=== PATIENT | male | born 1975 | race Caucasian/White ===

== ENCOUNTER 2023-07-23 14:58 | Inpatient (IN) | payer BC ==
[2023-07-23 15:53] VITALS: BMI 25.2
[2023-07-23] MEDS ORDERED: chlordiazePOXIDE HCL 25 MG CAPSULE PO PRN (17:55)
[2023-07-23] MEDS ORDERED: chlordiazePOXIDE HCL 25 MG CAPSULE PO ONE (17:55)
[2023-07-23] MEDS ORDERED: POLYETHYLENE GLYCOL (HEALTHYLAX) 3350 17 GM PACKET PO PRN (17:57)
[2023-07-23] MEDS ORDERED: MAGNESIUM HYDROX 2400MG/30ML ORAL SUSPENSION 30 ML CUP PO PRN (17:57)
[2023-07-23] MEDS ORDERED: IBUPROFEN 400 MG TABLET (FP) PO PRN (17:57)
[2023-07-23] MEDS ORDERED: BENZOCAINE/MENTHOL (CHLORASEPTIC ) LOZENGE MM PRN (17:57)
[2023-07-23] MEDS ORDERED: guaiFENesin 600 MG TABLET.ER (FP) PO PRN (17:57)
[2023-07-23] MEDS ORDERED: BISMUTH SUBSALICYLATE 524 MG/30 ML PO PRN (17:57)
[2023-07-23] MEDS ORDERED: MAG HYDROX/AL HYDROX/SIMETH 30 ML UNIT-DOSE CUP PO PRN (17:57)
[2023-07-23] MEDS ORDERED: BENZONATATE 200 MG CAPSULE PO PRN (17:57)
[2023-07-23] MEDS ORDERED: P-EPHED 60MG/TRIPROLIDI 2.5MG TABLET PO PRN (17:57)
[2023-07-23] MEDS ORDERED: ONDANSETRON *ODT* 4 MG TABLET SL PRN (17:57)
[2023-07-23] MEDS ORDERED: LOPERAMIDE HCL 2 MG CAPSULE PO PRN (17:57)
[2023-07-23] MEDS ORDERED: DICYCLOMINE HCL 10 MG CAPSULE PO PRN (17:57)
[2023-07-23] MEDS ORDERED: chlordiazePOXIDE HCL 25 MG CAPSULE ONE (18:38)
[2023-07-23] MEDS: IBUPROFEN 600 MG TABLET (FP) PO PRN (19:01)
[2023-07-23] MEDS: MELATONIN 5 MG TABLETS PO SCH (22:23)
[2023-07-23] MEDS: THIAMINE HCL 100 MG TABLET (FP) PO SCH (22:23)
[2023-07-23] MEDS: ACETAMINOPHEN 325 MG TABLET (FP) PO PRN (22:24)
[2023-07-23] MEDS: chlordiazePOXIDE HCL 25 MG CAPSULE PO SCH (22:25)
[2023-07-24] MEDS: chlordiazePOXIDE HCL 25 MG CAPSULE PO SCH ×4 (05:34→22:39)
[2023-07-24] MEDS: PRENATAL VITAMINS W/ FOLIC ACID TABLET (FP) PO SCH (10:27)
[2023-07-24] MEDS: IBUPROFEN 600 MG TABLET (FP) PO PRN (10:29)
[2023-07-24] MEDS: METHOCARBAMOL 500 MG TABLET PO PRN (10:31)
[2023-07-24 10:38] LABS: POTASSIUM 3.3 mmol/L (3.5-5.1)
[2023-07-24 10:42] LABS: HEMATOCRIT 31.3 % (35.4-49); HEMOGLOBIN 10.1 GM/dL (11.7-16.9); MCH 26.9 pg (25.7-33.7); MCHC 32.1 g/dl (32.0-35.9); MEAN CELL VOLUME 83.6 fl (80-96); MEAN PLT VOLUME 8.5 fl (7.5-11.1); PLATELET COUNT 47 10^3/uL (134-434); RBC 3.75 M/mm3 (4.00-5.60)
[2023-07-24 10:47] LABS: WHITE BLOOD COUNT 1.3 K/mm3 (4.0-10.0)
[2023-07-24 10:51] LABS: BLOOD UREA NITROGEN 7.6 mg/dL (7-18); CALCIUM 8.5 mg/dL (8.5-10.1)
[2023-07-24 10:54] LABS: CREATININE 0.6 mg/dL (0.55-1.3)
[2023-07-24 10:56] LABS: BILIRUBIN,TOTAL 1.6 mg/dL (0.2-1); TOT PROT 6.2 g/dl (6.4-8.2)
[2023-07-24] MEDS ORDERED: POTASSIUM CHLORIDE ORAL LIQUID 20 MEQ/15 ML PO ONE (12:23)
[2023-07-24] MEDS: NADOLOL 20 MG TABLET (FP) PO SCH (13:14)
[2023-07-24] MEDS: PANTOPRAZOLE 20 MG TABLET PO SCH (13:14)
[2023-07-24] MEDS: MELATONIN 5 MG TABLETS PO SCH (22:39)
[2023-07-24] MEDS: HYDROCORTISONE 1% TOPICAL CREAM 30 GM TUBE TP PRN (22:39)
[2023-07-24] MEDS: THIAMINE HCL 100 MG TABLET (FP) PO SCH (22:39)
[2023-07-25] MEDS: chlordiazePOXIDE HCL 25 MG CAPSULE PO SCH ×4 (05:57→22:13)
[2023-07-25] MEDS: NADOLOL 20 MG TABLET (FP) PO SCH (10:18)
[2023-07-25] MEDS: PRENATAL VITAMINS W/ FOLIC ACID TABLET (FP) PO SCH (10:19)
[2023-07-25] MEDS: PANTOPRAZOLE 20 MG TABLET PO SCH (10:19)
[2023-07-25] MEDS: METHOCARBAMOL 500 MG TABLET PO PRN (10:25)
[2023-07-25 10:48] LABS: HEMATOCRIT 31.6 % (35.4-49); MCH 26.7 pg (25.7-33.7); MCHC 31.6 g/dl (32.0-35.9); MEAN CELL VOLUME 84.4 fl (80-96); MEAN PLT VOLUME 8.9 fl (7.5-11.1); PLATELET COUNT 53 10^3/uL (134-434); RBC 3.75 M/mm3 (4.00-5.60); RDW 19.2 % (11.9-15.9)
[2023-07-25 11:07] LABS: WHITE BLOOD COUNT 1.8 K/mm3 (4.0-10.0)
[2023-07-25] MEDS: IBUPROFEN 600 MG TABLET (FP) PO PRN (18:50)
[2023-07-25] MEDS: MELATONIN 5 MG TABLETS PO SCH (22:13)
[2023-07-25] MEDS: THIAMINE HCL 100 MG TABLET (FP) PO SCH (22:13)
[2023-07-25] MEDS: ACETAMINOPHEN 325 MG TABLET (FP) PO PRN (22:14)
[2023-07-26] MEDS ORDERED: chlordiazePOXIDE HCL 10 MG CAPSULE PO PRN
[2023-07-26] MEDS: IBUPROFEN 600 MG TABLET (FP) PO PRN (01:58)
[2023-07-26] MEDS: chlordiazePOXIDE HCL 10 MG CAPSULE PO SCH ×4 (05:45→22:28)
[2023-07-26] MEDS: METHOCARBAMOL 500 MG TABLET PO PRN ×2 (10:21→17:28)
[2023-07-26] MEDS: PRENATAL VITAMINS W/ FOLIC ACID TABLET (FP) PO SCH (10:21)
[2023-07-26] MEDS: NADOLOL 20 MG TABLET (FP) PO SCH (10:21)
[2023-07-26] MEDS: PANTOPRAZOLE 20 MG TABLET PO SCH (10:21)
[2023-07-26] MEDS: MELATONIN 5 MG TABLETS PO SCH (22:28)
[2023-07-26] MEDS: THIAMINE HCL 100 MG TABLET (FP) PO SCH (22:28)
[2023-07-27] MEDS: chlordiazePOXIDE HCL 10 MG CAPSULE PO SCH ×2 (04:25→17:42)
[2023-07-27] MEDS: METHOCARBAMOL 500 MG TABLET PO PRN ×3 (04:26→23:09)
[2023-07-27] MEDS: PANTOPRAZOLE 20 MG TABLET PO SCH (10:23)
[2023-07-27] MEDS: PRENATAL VITAMINS W/ FOLIC ACID TABLET (FP) PO SCH (10:23)
[2023-07-27] MEDS: NADOLOL 20 MG TABLET (FP) PO SCH (10:23)
[2023-07-27] MEDS: IBUPROFEN 600 MG TABLET (FP) PO PRN (17:44)
[2023-07-27] MEDS ORDERED: HYDROCORTISONE ACETATE 25 MG/SUPP.RECT RC SCH (22:00)
[2023-07-27] MEDS: THIAMINE HCL 100 MG TABLET (FP) PO SCH (23:09)
[2023-07-27] MEDS: MELATONIN 5 MG TABLETS PO SCH (23:09)
[2023-07-27] MEDS: HYDROCORTISONE 1% TOPICAL CREAM 30 GM TUBE TP PRN (23:09)
[2023-07-28] MEDS ORDERED: chlordiazePOXIDE HCL 10 MG CAPSULE PO ONE (05:00)
[2023-07-28 09:09] VITALS: BP 108/76; PULSE 69; RESP 20; TEMP 97.8
[2023-07-28] MEDS: NADOLOL 20 MG TABLET (FP) PO SCH (10:21)
[2023-07-28] MEDS: PANTOPRAZOLE 20 MG TABLET PO SCH (10:21)
[2023-07-28] MEDS: PRENATAL VITAMINS W/ FOLIC ACID TABLET (FP) PO SCH (10:21)
[2023-07-28] MEDS: METHOCARBAMOL 500 MG TABLET PO PRN (10:22)
== END 2023-07-28 11:36 | disposition home or self-care (01) | DRG 775 ==
LOC: YASAS 14:58 → Y3N 18:30
PROVIDERS: ADMIT Allergy & Immunology; ATTEND Surgery
PROC: HZ2ZZZZ Detoxification Services for Substance Abuse Treatment (ICD-10-PCS; principal; 2023-07-23)
DX: F10.230 Alcohol dependence with withdrawal, uncomplicated (principal); D72.819 Decreased white blood cell count, unspecified; I10 Essential (primary) hypertension; K21.9 Gastro-esophageal reflux disease without esophagitis; Z59.00 Homelessness unspecified
CPT/HCPCS: 36415; 80053; 84132; 85027; 86780; 87635